=== PATIENT | male | born 1990 | race Hispanic/Latino ===

== ENCOUNTER 2023-02-17 17:39 | Emergency (ER) | payer OTHER ==
[~2023-02-17] VITALS: Ht 170.2 cm; Wt 59.9 kg
[2023-02-17] MEDS ORDERED: FAMOTIDINE20 MG PO (17:49)
--- NOTE | 2023-02-19 19:02 | EKG ---
[facility] [address] [facility] [place] [address] Signed Sinus tachycardia Otherwise normal ECG No previous ECGs available Confirmed by Jamey Park MD () on 02/19/2023 7:02:30 PM Electronically Signed By: JAMEY PARK MD 02/19/23 190 PATIENT NAME: RAMON WILKES Electrocardiogram DATE OF : 86 PHYSICIAN: JAMEY PARK MD REPORT #: [id number] REPORT IS CONFIDENTIAL AND NOT TO BE RELEASED WITHOUT AUTHORIZATION
== END 2023-02-17 19:37 | disposition home or self-care (01) ==
LOC: ED 17:39
DX: F15.129 Other stimulant abuse with intoxication, unspecified (principal); Z79.899 Other long term (current) drug therapy
CPT/HCPCS: 36415; 71045; 80053; 81003; 84484; 85025; 85379; 93005; 93010; 96374; 99284-25; J2060; J7030